=== PATIENT | female | born 1945 | race Caucasian/White ===

== ENCOUNTER → 2016-08-04 17:21 | Outpatient (CLI) | payer MEDICARE, OTHER | END | disposition home or self-care (01) | LOC: D.MAMMO 16:00 | DX: Z12.31 Encounter for screening mammogram for malignant neoplasm of breast (principal) ==

== ENCOUNTER 2016-08-20 04:42 | Emergency (ER) | payer MEDICARE, OTHER | END 2016-08-20 06:26 | disposition home or self-care (01) | LOC: D.ER 04:42 | DX: T78.40XA Allergy, unspecified, initial encounter (principal); X58.XXXA Exposure to other specified factors, initial encounter; J45.909 Unspecified asthma, uncomplicated; R73.03 Prediabetes ==

== ENCOUNTER 2016-11-12 16:24 | Emergency (ER) | payer MEDICARE, OTHER | END 2016-11-12 19:53 | disposition home or self-care (01) | LOC: D.ER 16:24 | DX: M54.2 Cervicalgia (principal); M54.6 Pain in thoracic spine; M25.511 Pain in right shoulder; M25.531 Pain in right wrist; V49.9XXA Car occupant (driver) (passenger) injured in unspecified traffic accident, initial encounter; Y93.89 Activity, other specified; Y92.89 Other specified places as the place of occurrence of the external cause; J45.909 Unspecified asthma, uncomplicated; R73.03 Prediabetes ==

== ENCOUNTER 2016-12-13 16:34 | Emergency (ER) | payer MEDICARE, OTHER ==
[2016-12-13 17:43] LABS: BASOPHILS 0.4 % (0-2); EOSINOPHILS 4.7 % (0-7); HEMATOCRIT 42.2 % (36.0-48.0); HEMOGLOBIN 13.3 g/dL (12-16); IMMATURE GRANULOCYTES 0.1 % (0-5); LYMPHOCYTES 29.1 % (15-50); MCH 29.6 pg (26.0-34.0); MCHC 31.5 g/dL (31.0-37.0); MEAN PLATELET VOLUME 9.5 fL (7.4-10.4); MONOCYTES 8.6 % (2-11); NEUTROPHILS 57.1 % (40-80); PLATELET COUNT 187 10x3/uL (130-400); RBC 4.49 10x6/uL (4.00-5.40); RDW 13.1 % (11.5-14.5); WBC 6.8 10x3/uL (4.8-10.8)
[2016-12-13 18:32] LABS: ALBUMIN 3.6 g/dL (3.4-5.0); ALKALINE PHOSPHATASE 60 U/L (46-116); ALT (SGPT) 29 U/L (10-68); BILIRUBIN - TOTAL 0.49 mg/dL (0.2-1.3); CALC OSMOLALITY 281 mosm/kg (275-300); CARBON DIOXIDE 28.5 mmol/L (21.0-32.0); CHLORIDE - SERUM 104 mmol/L (98-107); CREATININE - SERUM 0.8 mg/dL (0.6-1.3); GLUCOSE 94 mg/dL (74-106); POTASSIUM - SERUM 4.3 mmol/L (3.5-5.1); PROTEIN - SERUM 7.2 g/dL (6.4-8.2); SODIUM 141 mmol/L (136-145); UREA NITROGEN 16 mg/dL (7-18); eGFR NON AFRICAN AMERICAN 75 mL/min (90-120)
== END 2016-12-13 20:00 | disposition left against medical advice (07) ==
LOC: D.ER 16:34
PROVIDERS: Emergency Medicine
DX: R10.9 Unspecified abdominal pain (principal)

== ENCOUNTER 2017-04-09 12:43 | Emergency (ER) | payer MEDICARE, OTHER ==
[2017-04-09 13:33] LABS: BASOPHILS 0.3 % (0-2); HEMATOCRIT 40.4 % (36.0-48.0); IMMATURE GRANULOCYTES 0.2 % (0-5); LYMPHOCYTES 25.4 % (15-50); MCH 29.8 pg (26.0-34.0); MCHC 32.2 g/dL (31.0-37.0); MCV 92.7 fL (80.0-100.0); MEAN PLATELET VOLUME 9.9 fL (7.4-10.4); MONOCYTES 8.5 % (2-11); NEUTROPHILS 62.6 % (40-80); PLATELET COUNT 181 10x3/uL (130-400); RBC 4.36 10x6/uL (4.00-5.40); RDW 12.6 % (11.5-14.5); WBC 6.6 10x3/uL (4.8-10.8)
== END 2017-04-09 15:45 | disposition home or self-care (01) ==
LOC: D.ER 12:43
PROVIDERS: Emergency Medicine
DX: B34.9 Viral infection, unspecified (principal)

== ENCOUNTER → 2017-06-01 19:04 | Outpatient (CLI) | payer MEDICARE, OTHER ==
[2017-06-06 15:20] LABS: EHRLICHIA CHAFF IGG Negative (Neg:<1:64); EHRLICHIA CHAFF IGM Negative (Neg:<1:20); HGE IGG TITER Negative (Neg:<1:64); HGE IGM TITER Negative (Neg:<1:20)
[2017-06-06 16:11] LABS: RMSF IGM 0.15 index (0.00-0.89)
[2017-06-07 13:16] LABS: F. TULARENSIS - IGG Negative (()); F. TULARENSIS - IGM Negative (())
== END | disposition home or self-care (01) ==
LOC: D.LABREF 19:04
PROVIDERS: Student in an Organized Health Care Education/Training Program
DX: R53.83 Other fatigue (principal)

== ENCOUNTER 2017-10-28 22:26 | Observation (INO) | payer MEDICARE, OTHER ==
[~2017-10-28] VITALS: Ht 157.5 cm; Wt 78.8 kg
--- NOTE | ~2017-10-28 | HP ---
PATIENT: RENAE ESCUDERO MEDICAL RECORD: [id number] ACCOUNT: [id number] LOCATION:[address] : [birth year] ADMISSION DATE: 10/28/17 HISTORY AND PHYSICAL EXAMINATION ADMITTING DIAGNOSES: 1. Chest pain. 2. Hyperlipidemia. 3. COPD. 4. GERD. 5. Noninsulin-dependent diabetes. HISTORY OF PRESENT ILLNESS: Ms. Escudero presents with atypical chest pain. It is a sharp pain that lasts only 1 second. She has multiple episodes of these and then they go away. She has had recurrences of these over the past week. She just lost her last week in the hospital and she has been under a lot of stress secondary to that. Her EKG is normal. Troponin is normal. PHYSICAL EXAMINATION: GENERAL APPEARANCE: Well-nourished, well-developed, appears stated age. Level of distress, comfortable. PSYCHIATRIC: Mental status, alert, normal affect. Orientation, oriented to time, place and person. EYES: Lids and conjunctiva, noninjected. No discharge, no pallor. ENT: Lips, teeth, gums, normal dentition. Oropharynx, no cyanosis, no pallor. NECK: Carotid arteries, bilateral normal upstroke, no bruits, no thrills. JUGULAR VEINS: No jugular venous pressure or distention. CERVICAL LYMPH NODES: Nontender, nonenlarged. THYROID: Not enlarged. Nontender. No nodules. LUNGS: Respiratory effort, unlabored. CHEST: Normal curvature. No thoracic deformity. No chest wall tenderness. Percussion, resonant. Auscultation, clear. No wheezes, no rales, no rhonchi. CARDIOVASCULAR: Precordial exam, nondisplaced. No heaves or pericardial thrills. Rate and rhythm, regular. Heart sounds, normal S1, normal S2. No S3, no gallop, no rub. Systolic murmur, not heard. Diastolic murmur, not heard. EXTREMITIES: No cyanosis, no edema. Peripheral pulses, full and equal in all extremities, except as noted. No bruits appreciated. ABDOMEN: Soft, nondistended. Normal aorta. No bruit. Nontender. No masses. Liver, nontender, no hepatomegaly. Spleen, nontender, no splenomegaly. MUSCULOSKELETAL: No joint tenderness. No joint swelling. No erythema. NEUROLOGICAL: Normal gait, normal strength, normal tone. SKIN: Warm and dry. REVIEW OF SYSTEMS: The patient reports easy bruising but reports no swollen glands. The patient reports no fever, no night sweats, no significant weight gain, no significant weight loss. No significant exercise tolerance. The patient reports no dry eyes, no irritation, no vision change. Patient reports no difficulty hearing and no ear pain. Patient reports no frequent nose bleeds or nose and sinus problems. Patient reports on arm pain on exertion. No shortness of breath while lying down. No history of heart murmur. Patient reports no cough, no wheezing or coughing up blood. Patient reports no abdominal pain, no vomiting. Normal appetite. No diarrhea and not vomiting blood. No nausea and no constipation. Patient reports no incontinence. No difficulty urinating. No hematuria. No increased frequency. Patient reports no muscle aches. No weakness, no arthralgias, no back pain. No swelling of the HISTORY AND PHYSICAL [id number] FELICIANO,RENAE GARVINNE extremities. Patient reports no abnormal mole, no jaundice, no rashes. Reports no loss of consciousness. No weakness and no numbness. No seizures, dizziness, or headaches. The patient reports no depression, no sleep disturbance, feeling safe in a relationship and no alcohol abuse. Patient reports on fatigue. Reports no runny nose or sinus pressure. No itching, no hives, and no frequent sneezing. OVERALL IMPRESSION: Chest pain. This is not at all cardiac in nature. We will set her up for an outpatient stress test. TRANSINT:[id number] Voice Confirmation ID: [id number] DOCUMENT ID: [id number] RADAMES PABLO MD at 1629 CC: [id number] DICTATION DATE: 10/29/17 08 LOCK TECHNICIAN: 10/29/17 1142 DIS IN 10/29/17 [facility] [address] [place] [address]
--- NOTE | ~2017-10-28 | DS ---
PATIENT:RENAE ESCUDERO :[birth year] MEDICAL RECORD: [id number] DISCHARGE SUMMARY ADMISSION DATE: 10/28/17 DISCHARGE DATE: 10/29/17 DISCHARGE DIAGNOSES: 1. Noncardiac chest pain. 2. Hyperlipidemia. 3. Chronic obstructive pulmonary disease. 4. Diabetes. HOSPITAL COURSE: Ms. Escudero presents with atypical chest pain, rule out for myocardial infarction. No EKG changes. Discharged home to follow up with [facility] for a stress test in the future. TRANSINT:[id number] Voice Confirmation ID: [id number] DOCUMENT ID: [id number] RADAMES PABLO MD at 1630 CC: [id number] DICTATION DATE: 10/29/17 08 PEGGER DOBBY LOOMS: 10/29/17 1656 DIS IN 10/29/17 [facility] [address] [place] [address]
[2017-10-28 23:01] LABS: BASOPHILS 0.5 % (0-2); HEMATOCRIT 40.6 % (36.0-48.0); HEMOGLOBIN 13.1 g/dL (12-16); IMMATURE GRANULOCYTES 0.2 % (0-5); LYMPHOCYTES 30.1 % (15-50); MCHC 32.3 g/dL (31.0-37.0); MCV 92.9 fL (80.0-100.0); MEAN PLATELET VOLUME 10.2 fL (7.4-10.4); MONOCYTES 6.6 % (2-11); NEUTROPHILS 59.6 % (40-80); PLATELET COUNT 211 10x3/uL (130-400); RBC 4.37 10x6/uL (4.00-5.40); WBC 8.1 10x3/uL (4.8-10.8)
[2017-10-28 23:23] LABS: ALBUMIN 3.6 g/dL (3.4-5.0); ALKALINE PHOSPHATASE 73 U/L (46-116); ALT (SGPT) 29 U/L (10-68); CALC OSMOLALITY 285 mosm/kg (275-300); CALCIUM 8.6 mg/dL (8.5-10.1); CARBON DIOXIDE 30.1 mmol/L (21.0-32.0); CHLORIDE - SERUM 105 mmol/L (98-107); CREATININE - SERUM 0.9 mg/dL (0.6-1.3); POTASSIUM - SERUM 3.7 mmol/L (3.5-5.1); PROTEIN - SERUM 7.6 g/dL (6.4-8.2); SODIUM 140 mmol/L (136-145); UREA NITROGEN 24 mg/dL (7-18); eGFR NON AFRICAN AMERICAN 65 mL/min (90-120)
[2017-10-28 23:25] LABS: GLUCOSE 154 mg/dL (74-106)
[2017-10-28 23:33] LABS: CHOL - HDL RATIO 2.6 ratio (2.3-4.1); CHOLESTEROL, TOTAL 181 mg/dL (0-200); CKMB 1.8 U/L (0.0-3.6); CREATINE KINASE 126 UL (21-215); HDL CHOLESTEROL 71 mg/dL (32-96); LDL CHOLESTEROL 90 mg/dL (0-100); LDL-HDL RATIO 1.3 ratio (1.5-3.5); TRIGLYCERIDE 103 mg/dL (30-200); TROPONIN-I < 0.017 ng/mL (0.000-0.060)
[2017-10-29] MEDS ORDERED: XALATAN 0.0052.5 ML EACH EYE (00:51)
[2017-10-29] MEDS ORDERED: MOBIC7.5 MG PO (00:54)
[2017-10-29] MEDS ORDERED: ZOLOFT50 MG PO (00:54)
[2017-10-29] MEDS ORDERED: LIPITOR40 MG PO (00:55)
[2017-10-29] MEDS ORDERED: MIRAPEX0.25 MG PO (00:56)
[2017-10-29] MEDS ORDERED: BUPROPION XL150 MG PO (00:57)
[2017-10-29] MEDS ORDERED: LEXAPRO20 MG PO (00:57)
[2017-10-29] MEDS ORDERED: GLUCOPHAGE500 MG PO (00:58)
[2017-10-29] MEDS ORDERED: PROTONIX40 MG PO (00:59)
[2017-10-29] MEDS ORDERED: PROAIR HFA8.5 GM INH (01:01)
[2017-10-29 01:02] VITALS: BP 131/60
[2017-10-29 01:11] VITALS: BP 131/60; Ht 157.5 cm; Wt 78.8 kg
[2017-10-29 05:31] VITALS: BP 101/55
[2017-10-29 05:57] LABS: CKMB 1.2 U/L (0.0-3.6); CREATINE KINASE 92 UL (21-215); TROPONIN-I < 0.017 ng/mL (0.000-0.060)
[2017-10-29 08:36] VITALS: BP 124/64
[2017-10-29 08:56] LABS: CKMB 1.5 U/L (0.0-3.6); CREATINE KINASE 102 UL (21-215); TROPONIN-I < 0.017 ng/mL (0.000-0.060)
== END 2017-10-29 10:01 | disposition home or self-care (01) ==
LOC: D.ER 22:26 → D.M2 23:50 → OBSVTIME 23:50 → D.M2 10-29 10:01
PROVIDERS: Emergency Medicine
DX: R07.89 Other chest pain (principal); E78.5 Hyperlipidemia, unspecified; J44.9 Chronic obstructive pulmonary disease, unspecified; K21.9 Gastro-esophageal reflux disease without esophagitis; E11.9 Type 2 diabetes mellitus without complications

== ENCOUNTER → 2017-11-16 08:24 | Outpatient (CLI) | payer MEDICARE, OTHER ==
[2017-10-29 01:11] VITALS: BMI 31.8
[~2017-11-16 08:24] MED LIST: BUPROPION XL150 MG PO; GLUCOPHAGE500 MG PO; LEXAPRO20 MG PO; LIPITOR40 MG PO; MIRAPEX0.25 MG PO; MOBIC7.5 MG PO; PROAIR HFA8.5 GM INH; PROTONIX40 MG PO; XALATAN 0.0052.5 ML EACH EYE; ZOLOFT50 MG PO
== END | disposition home or self-care (01) ==
LOC: D.MAMMO 08:24
DX: Z12.31 Encounter for screening mammogram for malignant neoplasm of breast (principal)

== ENCOUNTER → 2017-12-22 09:33 | Outpatient (CLI) | payer MEDICARE, OTHER ==
[2017-10-29 01:11] VITALS: BMI 31.8
[~2017-12-22 09:33] MED LIST changes: +BACTRIM DS TABL1 TAB PO; +PHENAZOPYRIDIN100 MG PO
[2017-12-22 11:16] LABS: BASOPHILS 0.7 % (0-2); EOSINOPHILS 4.1 % (0-7); HEMATOCRIT 40.5 % (36.0-48.0); IMMATURE GRANULOCYTES 0.1 % (0-5); MCHC 32.1 g/dL (31.0-37.0); MCV 93.3 fL (80.0-100.0); MEAN PLATELET VOLUME 9.6 fL (7.4-10.4); MONOCYTES 7.4 % (2-11); NEUTROPHILS 50.7 % (40-80); PLATELET COUNT 209 10x3/uL (130-400); RBC 4.34 10x6/uL (4.00-5.40); RDW 12.8 % (11.5-14.5); WBC 7.3 10x3/uL (4.8-10.8)
[2017-12-23 08:19] LABS: IMMUNOGLOBULIN A 287 mg/dL (64-422)
[2017-12-24 03:10] LABS: IGG SUBCLASS 1 567 mg/dL (248-810); IGG SUBCLASS 2 313 mg/dL (130-555); IGG SUBCLASS 3 42 mg/dL (15-102); IGG SUBCLASS 4 94 mg/dL (2-96); IMMUNOGLOBULIN G 964 mg/dL (700-1600)
[2017-12-25 22:05] LABS: IMMUNOGLOBULIN E 45 IU/mL (0-100)
== END | disposition home or self-care (01) ==
LOC: D.RT 09:33
PROVIDERS: Internal Medicine Pulmonary Disease
DX: J32.9 Chronic sinusitis, unspecified (principal); Z87.01 Personal history of pneumonia (recurrent); J45.909 Unspecified asthma, uncomplicated; J42 Unspecified chronic bronchitis

== ENCOUNTER 2018-01-20 23:25 | Emergency (ER) | payer MEDICARE, OTHER ==
[~2018-01-20] VITALS: Ht 162.6 cm; Wt 75.0 kg
[~2018-01-20 23:25] MED LIST changes: -BACTRIM DS TABL1 TAB PO; -PHENAZOPYRIDIN100 MG PO
[2018-01-20 23:28] VITALS: Ht 162.6 cm; Wt 75.0 kg
[2018-01-21 00:35] LABS: APPEARANCE CLOUDY (CLEAR); BACTERIA MODERATE /hpf (NONE SEEN); BILIRUBIN NEGATIVE (NEGATIVE); COLOR YELLOW (YELLOW); EPITHELIAL CELLS NSEEN /hpf (0-5); GLUCOSE NEGATIVE (NEGATIVE); KETONE NEGATIVE (NEGATIVE); NITRITE NEGATIVE (NEGATIVE); PROTEIN TRACE mg/dL (NEGATIVE); UROBILINOGEN NORMAL (NORMAL); WHITE CELLS - URINE >50 /hpf (0-5)
[2018-01-21 00:52] LABS: BASOPHILS 0.2 % (0-2); EOSINOPHILS 2.1 % (0-7); HEMATOCRIT 38.9 % (36.0-48.0); HEMOGLOBIN 12.6 g/dL (12-16); IMMATURE GRANULOCYTES 0.2 % (0-5); LYMPHOCYTES 16.9 % (15-50); MCH 29.6 pg (26.0-34.0); MCHC 32.4 g/dL (31.0-37.0); MCV 91.3 fL (80.0-100.0); MEAN PLATELET VOLUME 9.8 fL (7.4-10.4); MONOCYTES 9.5 % (2-11); NEUTROPHILS 71.1 % (40-80); PLATELET COUNT 201 10x3/uL (130-400); RBC 4.26 10x6/uL (4.00-5.40); RDW 13.3 % (11.5-14.5); WBC 11.4 10x3/uL (4.8-10.8)
[2018-01-21 01:12] LABS: ALBUMIN 3.5 g/dL (3.4-5.0); ALKALINE PHOSPHATASE 58 U/L (46-116); ALT (SGPT) 26 U/L (10-68); BILIRUBIN - TOTAL 0.55 mg/dL (0.2-1.3); CALC OSMOLALITY 278 mosm/kg (275-300); CALCIUM 8.9 mg/dL (8.5-10.1); CARBON DIOXIDE 30.6 mmol/L (21.0-32.0); CHLORIDE - SERUM 100 mmol/L (98-107); CREATININE - SERUM 0.8 mg/dL (0.6-1.3); GLUCOSE 109 mg/dL (74-106); POTASSIUM - SERUM 3.8 mmol/L (3.5-5.1); PROTEIN - SERUM 7.1 g/dL (6.4-8.2); SODIUM 138 mmol/L (136-145); UREA NITROGEN 18 mg/dL (7-18); eGFR NON AFRICAN AMERICAN 75 mL/min (90-120)
[2018-01-21] MEDS ORDERED: PHENAZOPYRIDIN100 MG PO (01:47)
[2018-01-21] MEDS ORDERED: BACTRIM DS TABL1 TAB PO (01:47)
[2018-01-21 02:05] VITALS: BP 122/78
== END 2018-01-21 02:05 | disposition home or self-care (01) ==
LOC: D.ER 23:25
PROVIDERS: Family Medicine
DX: N39.0 Urinary tract infection, site not specified (principal); E11.9 Type 2 diabetes mellitus without complications

== ENCOUNTER 2018-02-23 16:49 | Emergency (ER) | payer MEDICARE, OTHER ==
[~2018-02-23] VITALS: Ht 162.6 cm; Wt 77.3 kg
[~2018-02-23 16:49] MED LIST changes: +BACTRIM DS TABL1 TAB PO; +PHENAZOPYRIDIN100 MG PO
[2018-02-23 17:31] VITALS: Ht 162.6 cm; Wt 77.3 kg
[2018-02-23 18:19] LABS: BASOPHILS 0.3 % (0-2); HEMATOCRIT 39.1 % (36.0-48.0); HEMOGLOBIN 12.6 g/dL (12-16); IMMATURE GRANULOCYTES 0.4 % (0-5); LYMPHOCYTES 22.3 % (15-50); MCH 29.3 pg (26.0-34.0); MCHC 32.2 g/dL (31.0-37.0); MCV 90.9 fL (80.0-100.0); MEAN PLATELET VOLUME 9.9 fL (7.4-10.4); MONOCYTES 7.8 % (2-11); NEUTROPHILS 67.2 % (40-80); PLATELET COUNT 199 10x3/uL (130-400); RDW 13.6 % (11.5-14.5); WBC 9.3 10x3/uL (4.8-10.8)
[2018-02-23 18:31] LABS: APTT 24.1 SECONDS (22.8-39.4); PROTIME 12.8 SECONDS (11.6-15.0)
[2018-02-23 18:32] LABS: D-DIMER-QUANTITATIVE 0.84 ug/mLFEU (0.20-0.54)
[2018-02-23 18:38] LABS: ALBUMIN 3.4 g/dL (3.4-5.0); ANION GAP 8.8 mmol/L (8-16); BILIRUBIN - TOTAL 0.4 mg/dL (0.2-1.3); CALCIUM 8.7 mg/dL (8.5-10.1); CARBON DIOXIDE 30.6 mmol/L (21.0-32.0); CREATININE - SERUM 1.1 mg/dL (0.6-1.3); POTASSIUM - SERUM 3.4 mmol/L (3.5-5.1); PROTEIN - SERUM 7.2 g/dL (6.4-8.2)
[2018-02-23] MEDS ORDERED: TORADOL10 MG PO (21:24)
[2018-02-23 21:43] VITALS: BP 149/79
== END 2018-02-23 21:44 | disposition home or self-care (01) ==
LOC: D.ER 16:49
PROVIDERS: Family Medicine
DX: M25.561 Pain in right knee (principal); R22.41 Localized swelling, mass and lump, right lower limb; E11.9 Type 2 diabetes mellitus without complications; K21.9 Gastro-esophageal reflux disease without esophagitis

== ENCOUNTER 2018-08-07 03:12 | Inpatient (IN) | payer MEDICARE, OTHER ==
[2018-08-07] VITALS (8 sets, daily range): BP systolic 111–154; BP diastolic 44–79; Ht 162.6 cm; Wt 76.8 kg
[~2018-08-07] VITALS: Ht 162.6 cm; Wt 76.8 kg
[~2018-08-07 03:12] MED LIST changes: +TORADOL10 MG PO
[2018-08-07] MEDS ORDERED: PROTONIX40 MG PO (03:17)
[2018-08-07] MEDS ORDERED: ZYBAN150 MG (03:18)
[2018-08-07] MEDS ORDERED: POTASSIUM CHLO10 ME1 PO (03:18)
[2018-08-07] MEDS ORDERED: BREO ELLIPTA 11 EACH INH (03:18)
[2018-08-07 04:49] LABS: BASOPHILS 0.5 % (0-2); EOSINOPHILS 3.2 % (0-7); HEMATOCRIT 39.8 % (36.0-48.0); HEMOGLOBIN 12.8 g/dL (12-16); IMMATURE GRANULOCYTES 0.1 % (0-5); LYMPHOCYTES 19.7 % (15-50); MCH 29.2 pg (26.0-34.0); MCHC 32.2 g/dL (31.0-37.0); MCV 90.7 fL (80.0-100.0); MEAN PLATELET VOLUME 10.3 fL (7.4-10.4); MONOCYTES 7.1 % (2-11); NEUTROPHILS 69.4 % (40-80); PLATELET COUNT 191 10x3/uL (130-400); RBC 4.39 10x6/uL (4.00-5.40); RDW 13.4 % (11.5-14.5); WBC 7.9 10x3/uL (4.8-10.8)
[2018-08-07 04:53] LABS: INR 1.06 (0.85-1.17); PROTIME 13.3 SECONDS (11.6-15.0)
[2018-08-07 05:01] LABS: ALBUMIN 3.3 g/dL (3.4-5.0); ANION GAP 11.9 mmol/L (8-16); BILIRUBIN - TOTAL 0.25 mg/dL (0.2-1.3); CALCIUM 8.8 mg/dL (8.5-10.1); CARBON DIOXIDE 29.7 mmol/L (21.0-32.0); CREATININE - SERUM 0.8 mg/dL (0.6-1.3); MAGNESIUM - SERUM 1.7 mg/dL (1.8-2.4); POTASSIUM - SERUM 3.6 mmol/L (3.5-5.1); PROTEIN - SERUM 6.7 g/dL (6.4-8.2)
--- NOTE | 2018-08-07 06:52 | NUR ---
IV FLUIDS STARTED. MAG RIDER INFUSING. PT USED BEDPAN AND VOIDED 200 ML YELLOW URINE. GAVE LEMON SWABS FOR ORAL DRYNESS.
--- NOTE | 2018-08-07 08:33 | NUR ---
AWAKE AND ALERT. ORIENTED X3. NO C/O AT THIS TIME. LUNGS ARE CLEAR BILATERALLY, NO COUGH NOTED. SKIN IS INTACT WITHOUT REDNESS. IV TO LEFT AC IS PATENT WITHOUT REDNESS AT INSERTION SITE. BOOT IN PLACE TO LEFT LE. MOVES DIGITS FREELY. DENIES NEEDS.
--- NOTE | 2018-08-07 10:03 | NUR ---
CONSENTS COMPLETED. HIBICLENS BATH INITIATED. NPO FOR SURGERY.
--- NOTE | 2018-08-07 13:50 | NUR ---
REQUESTED AND GIVNE 1MG MORPHINE SLOW IVP FOR C/O LEFT FOOT PAIN LEVEL 10. WILL MONITOR.
--- NOTE | 2018-08-07 13:57 | MORECARE ---
CASE MANAGEMENT DISCHARGE SUMMARY PATIENT: RENAE WIGGINS UNIT: [id number] ADM DATE: 08/07/18 AGE: 73 : 46 SEX: F ROOM/BED: D.2203 AUTHOR: RAJANI HUNTER PHYSICIAN: REFERRING PHYSICIAN: RICCARDO DURHAM MD DATE OF SERVICE: 08/07/18 Discharge Plan Patient Name: RENAE WIGGINS Facility: [facility]:[place] : 1945 Planned Disposition: Home Anticipated Discharge Date: Discharge Date: Expected LOS: Initial Reviewer: [email or web address] Initial Review Date: 08/07/2018 Generated: 08/07/18 2:57 pm Patient Name: RENAE WIGGINS Page 56407 at 1357 All edits/amendments must be made on the electronic document DICTATION DATE: 08/07/18 1357 SOFTWARE SALES CONSULTANT: CHERRI 08/07/18 1357 RPT#: [id number] DC DATE: STATUS: ADM IN [facility] [address] [place] [address] END OF REPORT
--- NOTE | 2018-08-07 14:05 | MORECARE ---
CASE MANAGEMENT DISCHARGE SUMMARY PATIENT: RENAE WIGGINS UNIT: [id number] ADM DATE: 08/07/18 AGE: 73 : 46 SEX: F ROOM/BED: D.2203 AUTHOR: DALEDOC PHYSICIAN: REFERRING PHYSICIAN: RICCARDO DURHAM MD DATE OF SERVICE: 08/07/18 Discharge Plan Patient Name: RENAE WIGGISN Facility: [facility]:[place] : 1945 Planned Disposition: Home Anticipated Discharge Date: Discharge Date: Expected LOS: Initial Reviewer: [email or web address] Initial Review Date: 08/07/2018 Generated: 08/07/18 3:05 pm Comments DCP- Discharge Planning Updated by [email or web address]: Ekaterina Trujillo on 08/07/18 1:[address] Patient Name: RENAE WIGGINS Admission Status: ER Accout number: [id number] Admission Date: 08-07-2018 : 1945 Admission Diagnosis: Attending: RICCARDO DURHAM Current LOS: 1 Anticipated DC Date: Planned Disposition: Home Primary Insurance: MEDICARE A & B Discharge Planning Comments: CM met with patient to assess discharge planning needs. Patient stated that she lives independently at home with her 18 year old niece. She does not use any home health nor does she have any DME. She is going to surgery today. She will need a walker at discharge. She stated that either her daughter or her son will be the one to drive her home at DC. She has 3 steps in her home. CM will continue to follow and assist with DC planning needs. Technologist Infectious Disease: Ekaterina Trujillo DCPIA - Discharge Planning Initial Assessment Updated by [email or web address]: Ekaterina Trujillo on 08/07/18 1:57 pm * Is the patient Alert and Oriented? Yes * How many steps to enter\exit or inside your home? * PCP ANA * Pharmacy [facility] * Preadmission Environment Home with Family * ADLs Independent * Equipment None * List name and contact numbers for known caregivers / representatives who currently or will assist patient after discharge: TARAH ESQUIVEL (DAUGHTER) [phone] * Verbal permission to speak to the caregivers and representatives has been obtained from the patient. N/A * Community resources currently utilized None * Additional services required to return to the preadmission environment? Yes * Can the patient safely return to the preadmission environment? Yes * Has this patient been hospitalized within the prior 30 days at any hospital? No Last DP export: 08/07/18 12:57 p Patient Name: RENAE WIGGINS Page [id number] at 1405 All edits/amendments must be made on the electronic document DICTATION DATE: 08/07/181404 WRAPPER STITCHER: CHERRI 08/07/181404 RPT#: [id number] DC DATE: STATUS: ADM IN [facility] [address] [place] [address] END OF REPORT
--- NOTE | 2018-08-07 14:45 | NUR ---
OFF UNIT VIA BED TO SURGERY.
--- NOTE | 2018-08-07 17:24 | NUR ---
RETURNED FROM SURGERY. A/O X3. DENIES NEEDS.
--- NOTE | 2018-08-07 19:22 | NUR ---
VSS. ATE ABOUT HALF OF SUPPER. DENIES NEEDS. NO CHANGES NOTED.
--- NOTE | 2018-08-07 19:45 | NUR ---
PT SITTING UP IN BED, NO SIGNS OF DISTRESS. ALERT AND ORIENTED. FAMILY AT BEDSIDE. O2 2L/NC. IV LEFT FA INFUSING 1/2NS @ 50. INITIATED DILAUDID INSURANCE SALESMAN. EDUCATED PT ON USE. PT VERBALIZED UNDERSTANDING. LEFT ANKLE WRAPPED IN JAYRO WRAP, DRESSING SLIGHTLY WET. DAY NURSE STATES PT CAME BACK FROM SX W/ IT WET. ANKLE PROPPED ON TWO PILLOWS. SCD TO RIGHT LEG. ASSISTED PT ON AND OFF BEDPAN TO VOID. NO OTHER NEEDS OR COMPLAINTS AT THIS TIME. CL IN REACH, WILL CONTINUE TO MONITOR
[2018-08-08 04:00] VITALS: BP 102/48
--- NOTE | 2018-08-08 08:10 | NUR ---
AWAKE AND ALERT. ORIENTED X3. NO C/O AT THIS TIME. LUNGS ARE CLEAR BILATERALLY, NO COUGH NOTED. SKIN IS INTACT WITHOUT REDNESS EXCEPT INCISION TO LEFT ANKLE WHICH HAS A DRY INTACT DRESSING IN PLACE. IV TO LEFT AC IS PATENT WITHOUT REDNESS AT INSERTION SITE. ASSISTED WITH BED VANCE PER STAFF. DENIES NEEDS.
[2018-08-08 09:15] VITALS: BP 127/59
[2018-08-08] MEDS ORDERED: DORZOLAMIDE-TIMOLOL EACH EYE (09:27)
--- NOTE | 2018-08-08 10:00 | NUR ---
ATE MOST OF BREAKFAST. NO NEEDS. NOTED. WORKED WITH PT AND WAS VERY UNSTABLE. WILL MONITOR.
--- NOTE | 2018-08-08 13:00 | NUR ---
ATE A FEW BITES OF LUNCH. FAMILY BROUGHT IN A HAMBURGER AND PATIENT ATE ALMOST THE WHOLE THING. DENIES NEEDS.
[2018-08-08 13:37] VITALS: BP 102/54
--- NOTE | 2018-08-08 15:07 | NUR ---
Rehab Note- Acute Inpatient Rehab prescreen order received. The patient is post op day #1. Will follow at this time for possible inpatient acute rehab stay prior to discharging home. Thank you for this referral! Angelita Hernández RN Clinical Liaison, [facility]
--- NOTE | 2018-08-08 17:15 | NUR ---
SITTING UP IN BED EATING SUPPER. REQUESTED AND GIVEN ONE HYDROCODONE PO FOR C/O NECK AND HEADACHE. WILL MONITOR.
--- NOTE | 2018-08-08 19:45 | NUR ---
PT SITTING UP IN BED, NO SIGNS OF DISTRESS. ALERT AND ORIENTED. PT STATES NO PAIN AT THIS TIME. LEFT ANKLE WRAPPED IN JAYRO WRAP CDI, PROPPED ON PILLOWS. SCD TO RIGHT LEG. ASSISTED PT ON AND OFF BEDPAN TO VOID. IV LEFT AC SL, DRESSING CDI. DENIES NEEDS AT THIS TIME. CL IN REACH, WILL CONTINUE TO MONITOR
[2018-08-08 20:00] VITALS: BP 109/49
--- NOTE | 2018-08-09 01:00 | NUR ---
PT STATES PAIN 4/10 AND INCREASING. GAVE NORCO ORDERED. WILL CONTINUE TO MONITOR
[2018-08-09 04:00] VITALS: BP 113/55
--- NOTE | 2018-08-09 07:57 | NUR ---
PT RESTING IN BED. NO SIGNS OF DISTRESS. IV TO LEFT AC PATENT NO REDNESS OR TENDERNESS. INCISION TO LEFT ANKLE DRESSING CLEAN AND INTACT. NON WT BARING. DENIES ANY PAIN OR OTHER NEED AT THIS TIME. CALL LIGHT IN REACH. BED LOW POSITION. NO FAMILY AT BEDSIDE AT THIS TIME.
[2018-08-09 10:25] VITALS: BP 129/50
--- NOTE | 2018-08-09 12:37 | MORECARE ---
CASE MANAGEMENT DISCHARGE SUMMARY PATIENT: RENAE WIGGINS UNIT: [id number] ADM DATE: 08/07/18 AGE: 73 : 46 SEX: F ROOM/BED: D.2203 AUTHOR: DALE,DOC PHYSICIAN: REFERRING PHYSICIAN: RICCARDO DURHAM MD DATE OF SERVICE: 08/09/18 Discharge Plan Patient Name: RENAE WIGGINS Facility: [facility]:[place] : 1945 Planned Disposition: Home Anticipated Discharge Date: Discharge Date: Expected LOS: Initial Reviewer: [email or web address] Initial Review Date: 08/07/2018 Generated: 08/09/18 1:37 pm Comments DCP- Discharge Planning Updated by [email or web address]: Ekaterina Trujillo on 08/09/18 11:[address] Patient has been accepted to inpatient rehab and will be discharging there today at [facility] inpatient rehab. Patient is in agreement DCP- Discharge Planning Updated by [email or web address]: Ekaterina Trujillo on 08/07/18 1:[address] Patient Name: RENAE WIGGINS Admission Status: ER Accout number: [id number] Admission Date: 08-07-2018 : 1945 Admission Diagnosis: Attending: RICCARDO DURHAM Current LOS: 1 Anticipated DC Date: Planned Disposition: Home Primary Insurance: MEDICARE A & B Discharge Planning Comments: CM met with patient to assess discharge planning needs. Patient stated that she lives independently at home with her 18 year old niece. She does not use any home health nor does she have any DME. She is going to surgery today. She will need a walker at discharge. She stated that either her daughter or her son will be the one to drive her home at DC. She has 3 steps in her home. CM will continue to follow and assist with DC planning needs. Thread Laster: Ekaterina Trujillo DCPIA - Discharge Planning Initial Assessment Updated by [email or web address]: Ekaterina Trujillo on 08/07/18 1:57 pm * Is the patient Alert and Oriented? Yes * How many steps to enter\exit or inside your home? * PCP ANA * [facility] * Preadmission Environment Home with Family * ADLs Independent * Equipment None * List name and contact numbers for known caregivers / representatives who currently or will assist patient after discharge: TARAH ESQUIVEL (DAUGHTER) [phone] * Verbal permission to speak to the caregivers and representatives has been obtained from the patient. N/A * Community resources currently utilized None * Additional services required to return to the preadmission environment? Yes * Can the patient safely return to the preadmission environment? Yes * Has this patient been hospitalized within the prior 30 days at any hospital? No Last DP export: 08/07/18 1:05 p Patient Name: RENAE WIGGINS Page 84654 at 1237 All edits/amendments must be made on the electronic document DICTATION DATE: 08/09/181236 AIRBORNE MISSIONS SYSTEMS: CHERRI 08/09/181236 RPT#: [id number] DC DATE: STATUS: ADM IN [facility] [address] [place] [address] END OF REPORT
[2018-08-09] MEDS ORDERED: ELIQUIS2.5 MG PO (12:49)
[2018-08-09] MEDS ORDERED: NORCO-10 PO (12:49)
[2018-08-09 16:40] VITALS: BP 115/51
--- NOTE | 2018-08-09 17:08 | NUR ---
DISCHARGE INSTRUCTIONS GIVEN. SEEMS TO UNDERSTAND. DISCHARGED TO REHAB. DENIES ANY NEED BEFORE LEAVING. LEFT WITH HOSPITAL STAFF. IV OUT TIP INTACT.
--- NOTE | 2018-08-10 14:26 | OP ---
PATIENT NAME: RENAE WIGGINS MEDICAL RECORD: [id number] :[birth year] LOCATION:[address] ADMISSION DATE:08/07/18 SURGEON: RICCARDO DURHAM MD DATE OF OPERATION: 08/07/2018 PREOPERATIVE DIAGNOSIS: Left lateral malleolus fracture with medial clear space widening. POSTOPERATIVE DIAGNOSIS: Left lateral malleolus fracture with medial clear space widening. PROCEDURE: Open reduction and internal fixation of the patient's left ankle-fibula. SURGEON: Riccardo Durham MD SLITTER AND CUTTER OPERATOR: EDDA Ramirez INTRAOPERATIVE COMPLICATIONS: None. SUMMARY OF PATHOLOGIC FINDINGS: The patient did have a displaced medial malleolar fracture, which reduced nicely to an anatomic position, thusly reducing the medial clear space. IMPLANTS USED: Heather VariAx internal fixation system. OPERATIVE SUMMARY IN DETAIL: After obtaining the appropriate preoperative orthopedic surgery consent as well as anesthetic consultation, evaluation, and clearance, the patient was brought to the operating room and placed on the operating table in the supine position. After adequate general laryngeal mask airway was administered, tourniquet was placed about the proximal aspect of the left lower extremity. The left lower extremity was then prepped and draped in routine sterile fashion. The leg was elevated, exsanguinated, and the tourniquet was inflated to 350 mmHg. An incision was made from the tip of the fibula up to the fibula across the fracture site. Care was taken to avoid any neurovascular structures, specifically the sural nerve. Dissection was then carried to periosteum and fracture hematoma was removed from the fracture. The fracture was then reduced in anatomic position. Two provisional K-wires were put into place. Under direct fluoroscopic visualization, the plate was placed. A combination of compression and locking screws were utilized to fix the plate. Final radiographs of AP, lateral, and oblique views were taken and submitted for radiologist's review. At this point, the wound was copiously irrigated and closed by Shahab Wiseman with #2 Vicryl and jeremy. Sterile dressings were applied. Tourniquet was deflated. Posterior L&U splint was applied. The patient was awakened and taken to the recovery room in stable condition. All final needle and sponge counts were correct. TRANSINT:[id number] Voice Confirmation ID: [id number] DOCUMENT ID: [id number] OPERATIVE REPORT [id number] RENAE WIGGINS MD, RICCARDO BRITO at 1426 CC: [id number] DICTATION DATE: 08/07/18 1630 PALS NURSE: 08/07/181915 DIS IN 08/09/18 [facility] [address] [place] [id number]
--- NOTE | 2018-08-11 14:34 | MORECARE ---
CASE MANAGEMENT DISCHARGE SUMMARY PATIENT: RENAE WIGGINS UNIT: [id number] ADM DATE: 08/07/18 AGE: 73 : 47 SEX: F ROOM/BED: D.2203 AUTHOR: RAJANI HUNTER PHYSICIAN: REFERRING PHYSICIAN: RICCARDO DURHAM MD DATE OF SERVICE: 08/11/18 Discharge Plan Patient Name: RENAE WIGGINS Facility: [facility]:[place] : 1945 Planned Disposition: Home Anticipated Discharge Date: Discharge Date: 08/09/2018 Expected LOS: 0 Initial Reviewer: [email or web address] Initial Review Date: 08/07/2018 Generated: 08/11/18 3:34 pm Comments DCP- Discharge Planning Updated by [email or web address]: Ekaterina Trujillo on 08/09/18 11:[address] Patient has been accepted to inpatient rehab and will be discharging there today at [facility] inpatient rehab. Patient is in agreement DCP- Discharge Planning Updated by [email or web address]: Ekaterina Trujillo on 08/07/18 1:[address] Patient Name: RENAE WIGGINS Admission Status: ER Accout number: [id number] Admission Date: 08-07-2018 : 1945 Admission Diagnosis: Attending: RICCARDO DURHAM Current LOS: 1 Anticipated DC Date: Planned Disposition: Home Primary Insurance: MEDICARE A & B Discharge Planning Comments: CM met with patient to assess discharge planning needs. Patient stated that she lives independently at home with her 18 year old niece. She does not use any home health nor does she have any DME. She is going to surgery today. She will need a walker at discharge. She stated that either her daughter or her son will be the one to drive her home at DC. She has 3 steps in her home. CM will continue to follow and assist with DC planning needs. Ash Collector: Ekaterina Trujillo DCPIA - Discharge Planning Initial Assessment Updated by [email or web address]: Ekaterina Trujillo on 08/07/18 1:57 pm * Is the patient Alert and Oriented? Yes * How many steps to enter\exit or inside your home? * PCP ANA * Pharmacy [facility] * Preadmission Environment Home with Family * ADLs Independent * Equipment None * List name and contact numbers for known caregivers / representatives who currently or will assist patient after discharge: TARAH ESQUIVEL (DAUGHTER) [phone] * Verbal permission to speak to the caregivers and representatives has been obtained from the patient. N/A * Community resources currently utilized None * Additional services required to return to the preadmission environment? Yes * Can the patient safely return to the preadmission environment? Yes * Has this patient been hospitalized within the prior 30 days at any hospital? No Last DP export: 08/09/18 11:37 a Patient Name: RENAE WIGGINS Page [id number] at 1434 All edits/amendments must be made on the electronic document DICTATION DATE: 08/11/181433 BEER COIL CLEANER: CHERRI 08/11/181433 RPT#: [id number] DC DATE:08/09/18 STATUS: DIS IN [facility] [address] [place] [address] END OF REPORT
== END 2018-08-09 17:09 | DRG 494 ==
LOC: D.ER 03:12 → D.MS 05:46
PROVIDERS: Emergency Medicine; ADMIT Orthopaedic Surgery
PROC: 0QSK04Z Reposition Left Fibula with Internal Fixation Device, Open Approach (ICD-10-PCS; principal; 2018-08-07 16:30)
DX: S82.62XA Displaced fracture of lateral malleolus of left fibula, initial encounter for closed fracture (principal); X58.XXXA Exposure to other specified factors, initial encounter; E11.9 Type 2 diabetes mellitus without complications; J45.909 Unspecified asthma, uncomplicated; E83.42 Hypomagnesemia

== ENCOUNTER 2018-08-09 16:06 | Inpatient (IN) | payer MEDICARE, OTHER ==
[~2018-08-09] VITALS: Ht 162.6 cm; Wt 76.7 kg
[~2018-08-09 16:06] MED LIST changes: +BREO ELLIPTA 11 EACH INH; +DORZOLAMIDE-TIMOLOL EACH EYE; +ELIQUIS2.5 MG PO; +NORCO-10 PO; +POTASSIUM CHLO10 ME1 PO; +ZYBAN150 MG
--- NOTE | 2018-08-09 19:08 | NUR ---
ADMIT TO REHAB FROM ACUTE UNIT. ALERT AND ORIENTED. L EYE BLIND, R EYE WITH VISUAL IMPAIRMENT.
[2018-08-10 00:06] VITALS: BP 111/37; BMI 29.0
--- NOTE | 2018-08-10 01:20 | NUR ---
PT ASLEEP NO NEEDS NOTED FLUIDS AND CALL LIGHT WITHIN REACH
[2018-08-10 06:20] LABS: HEMATOCRIT 40.8 % (36.0-48.0); HEMOGLOBIN 12.8 g/dL (12-16); MCH 29.4 pg (26.0-34.0); MCHC 31.4 g/dL (31.0-37.0); MCV 93.6 fL (80.0-100.0); MEAN PLATELET VOLUME 12.2 fL (7.4-10.4); RBC 4.36 10x6/uL (4.00-5.40); RDW 13.3 % (11.5-14.5); WBC 6.8 10x3/uL (4.8-10.8)
[2018-08-10 06:30] LABS: CALC OSMOLALITY 276 mosm/kg (275-300); CALCIUM 8.1 mg/dL (8.5-10.1); CARBON DIOXIDE 27.1 mmol/L (21.0-32.0); CHLORIDE - SERUM 101 mmol/L (98-107); CREATININE - SERUM 0.5 mg/dL (0.6-1.3); GLUCOSE 132 mg/dL (74-106); SODIUM 137 mmol/L (136-145); UREA NITROGEN 14 mg/dL (7-18); eGFR NON AFRICAN AMERICAN > 90 mL/min (90-120)
[2018-08-10 06:31] LABS: PLATELET COUNT 130 10x3/uL (130-400); POTASSIUM - SERUM 4.6 mmol/L (3.5-5.1)
[2018-08-10 07:54] LABS: LYMPHOCYTES 25 % (15-50); MONOCYTES 4 % (2-11); NEUTROPHILS 71 % (40-80); PLATELET ESTIMATE NORMAL
[2018-08-10 08:00] VITALS: BP 123/54
[2018-08-10 11:05] VITALS: Ht 162.6 cm; Wt 76.7 kg
--- NOTE | 2018-08-10 17:54 | NUR ---
PT RESTING IN BED WITH EYES OPEN CALL LIGHT IN REACH NO PROBLEMS WILL MONITER
--- NOTE | 2018-08-10 20:00 | NUR ---
PATIENT RECEIVED SITTING UP IN BED TALKING WITH HER BROTHER. PATIENT VITAL SIGNS & ASSESSMENT DONE. PATIENT BED LOW. ALARM ON. CALL LIGTH WITHIN REACH. WILL CONTINUE TO MONITOR.
[2018-08-10 20:03] VITALS: BP 110/51
--- NOTE | 2018-08-11 01:57 | NUR ---
PATIENT EYES CLOSED. RESPIRATIONS 18 & EVEN. PATIENT BED LOW. CALL LIGHT WITHIN REACH. WILL CONTINUE TO MOITOR.
--- NOTE | 2018-08-11 02:48 | NUR ---
PATIENT AWAKE USED CALL LIGHT FOR ASSIST. PATIENT TOILETED. BED LOW. ALARM ON. CALL LIGHT WITHIN REACH. WILL CONTINUE TO MONITOR.
[2018-08-11 05:43] LABS: BASOPHILS 0.3 % (0-2); HEMOGLOBIN 12.3 g/dL (12-16); IMMATURE GRANULOCYTES 0.2 % (0-5); LYMPHOCYTES 30.1 % (15-50); MCH 29.1 pg (26.0-34.0); MCHC 32.4 g/dL (31.0-37.0); MONOCYTES 13.8 % (2-11); NEUTROPHILS 51.6 % (40-80); RBC 4.22 10x6/uL (4.00-5.40); RDW 13.1 % (11.5-14.5); WBC 5.8 10x3/uL (4.8-10.8)
[2018-08-11 05:49] LABS: CALC OSMOLALITY 277 mosm/kg (275-300); CALCIUM 8.7 mg/dL (8.5-10.1); CARBON DIOXIDE 29.6 mmol/L (21.0-32.0); CHLORIDE - SERUM 100 mmol/L (98-107); GLUCOSE 121 mg/dL (74-106); PLATELET COUNT 215 10x3/uL (130-400); POTASSIUM - SERUM 4.2 mmol/L (3.5-5.1); SODIUM 138 mmol/L (136-145); UREA NITROGEN 14 mg/dL (7-18); eGFR NON AFRICAN AMERICAN 87 mL/min (90-120)
[2018-08-11 05:53] LABS: CREATININE - SERUM 0.7 mg/dL (0.6-1.3)
[2018-08-11 08:00] VITALS: BP 121/70
--- NOTE | 2018-08-11 08:00 | NUR ---
PATIENT SITTING UP IN WHEELCHAIR AT BEDSIDE. CALL LIGHT WITHIN REACH. VOICES NO NEEDS AT THIS TIME. WILL CONTINUE WITH PLAN OF CARE
--- NOTE | 2018-08-11 10:49 | NUR ---
PATIENT IN REHAB ROOM. WORKING WITH PHYSICAL THERAPIST. DENIES ANY PAIN DISCOMFORT AT THIS TIME. PRN PAIN MEDICATION GIVEN THIS AM
--- NOTE | 2018-08-11 16:41 | NUR ---
PATIENT RESTING IN BED AFTER THERAPY. VOICES NO NEEDS AT THIS TIME.
--- NOTE | 2018-08-11 19:18 | NUR ---
PATIENT IS SITTING UP IN HER WHEELCHAIR. CALL LIGHT IS IN REACH.
--- NOTE | 2018-08-11 20:00 | NUR ---
PT IS RESTING IN WC IN HER ROOM WITH EYES OPEN. ALERT AND ORIENTED X 3. VOICED COMPLAINT OF LEFT LEG PAIN LEVEL OF 7. MEDICATED PER MAR. NO FURTHER NEEDS VOICED. DAUGHTER IS AT BEDSIDE. SR'S ARE UP X 3 IN BED. CALL LIGHT AND BEDSIDE TABLE ARE WITHIN EASY REACH.
[2018-08-11 21:06] VITALS: BP 128/67
--- NOTE | 2018-08-11 23:28 | NUR ---
PT IS RESTING QUIETLY IN BED WITH EYES CLOSED. RESPS ARE EVEN AND UNLABORED. NO ACUTE DISTRESS NOTED.
--- NOTE | 2018-08-12 03:11 | NUR ---
RESTING IN BED WITH EYES CLOSED.
--- NOTE | 2018-08-12 06:17 | NUR ---
PT RESTING IN BED WITH EYES OPEN. NO NEEDS VOICED.
--- NOTE | 2018-08-12 07:35 | NUR ---
PT RESTING QUIETLY CALL LIGHT IN REACH. NO SIGNS OF DISTRESS OR PAIN. BED IN LOW POSITION. SIDE RAILS X2. WILL CONTINUE TO MONITOR.
[2018-08-12 08:00] VITALS: BP 134/65
--- NOTE | 2018-08-12 10:59 | NUR ---
PT WOULD LIKE TO TALK TO DR. BORJA DUE TO ZOLOFT DOSAGE. PT STATES SHE TAKES 50MG AT HOME BUT IS ON 100MG HERE. PT REFUSED MED THIS MORNING. NOTE LEFT FOR DR. BORJA. WILL CONTINUE TO MONITOR. PT STATES IT MADE HER FEEL OVER DOSED YESTERDAY AND DOWN IN THE DUMPS.
--- NOTE | 2018-08-12 14:16 | NUR ---
PT IN THERAPY DENIES NEEDS
--- NOTE | 2018-08-12 17:26 | NUR ---
ASSISTED PT TO AND FROM BATHROOM. PT BACK IN BED LYING DOWN. CALL LIGHT IN REACH. PT DENIES NEEDS OR PAIN. BED IN LOW POSITION. SIDE RAILS X2. WILL CONTINUE TO MONITOR.
--- NOTE | 2018-08-12 19:27 | NUR ---
PATIENT IS RESTING IN BED. SHE HAS VISITORS AT BEDSIDE. SHE DENIES ANY NEEDS AT THIS TIME. BED IS DOWN LOW WITH SIDE RAILS UP X2. CALL LIGHT IS IN REACH.
--- NOTE | 2018-08-12 21:31 | NUR ---
PT IS RESTING QUIETLY IN BED WITH EYES CLOSED. RESPS ARE EVEN AND UNLABORED. NO ACUTE DISTRESS NOTED.
--- NOTE | 2018-08-13 00:01 | NUR ---
PT RESTING QUIETLY IN BED WITH EYES CLOSED. NO ACUTE DISTRESS NOTED.
--- NOTE | 2018-08-13 03:26 | NUR ---
PT RESTING IN BED WITH EYES OPEN. NO NEEDS VOICED.
--- NOTE | 2018-08-13 07:45 | NUR ---
RECEIVED REPORT. SITTING UP ON SIDE OF BED ALERT AND ORIENTED X4. DENIES ANY NEEDS OR PAIN. RR EVEN AND UNLABORED. CALL LIGHT WITHIN REACH, FALL PRECAUTIONS IN PLACE
[2018-08-13 09:14] VITALS: BP 135/68
--- NOTE | 2018-08-13 13:09 | NUR ---
LYING IN BED EYES CLOSED RESTING. CALL LIGHT WITHIN REACH, FALL PRECAUTIONS IN PLACE
--- NOTE | 2018-08-13 15:11 | NUR ---
SITTING UP IN W/C ON PHONE. DENIES ANY NEEDS OR PAIN.
--- NOTE | 2018-08-13 17:53 | NUR ---
SITTING UP IN W/C EATING DINNER. FAMILY AT BEDSIDE. DENIES ANY NEEDS OR PAIN. CALL LIGHT WITHIN REACH, FALL PRECAUTIONS IN PLACE
[2018-08-13 17:57] VITALS: BP 134/60
--- NOTE | 2018-08-13 18:56 | NUR ---
PATIENT IS SITTING UP IN HER WHEELCHAIR AND SHE HAS VISITORS. SHE DENIES ANY NEEDS. CALL LIGHT IS IN REACH.
--- NOTE | 2018-08-13 21:27 | NUR ---
PT IS SITTING IN HER WC IN HER ROOM VISITING WITH HER . ALERT AND ORIENTED X 3. SHE DENIES ACUTE PAIN OR DISCOMFORT. PT IS LEGALLY BLIND IN BOTH EYES. NO NEEDS VOICED AT THIS TIME. SR'S ARE UP X 2 IN BED. CALL LIGHT AND BEDSIDE TABLE ARE WITHIN EASY REACH.
--- NOTE | 2018-08-14 00:01 | NUR ---
PT RESTING IN BED WITH EYES CLOSED. NO ACUTE DISTRESS NOTED.
--- NOTE | 2018-08-14 03:08 | NUR ---
PT RESTING QUIETLY IN BED WITH EYES CLOSED. NO ACUTE DISTRESS NOTED.
--- NOTE | 2018-08-14 05:57 | NUR ---
PT ASSISTED TO THE BATHROOM WITH MIN ASSIST. VOIDED WITHOUT DIFFICULTY. PT OPTED TO SIT UP IN WC, SAYING SHE WAS TIRED OF BEING IN THE BED.
[2018-08-14 06:48] LABS: BASOPHILS 0.5 % (0-2); EOSINOPHILS 3.9 % (0-7); HEMATOCRIT 41.4 % (36.0-48.0); HEMOGLOBIN 13.3 g/dL (12-16); IMMATURE GRANULOCYTES 0.3 % (0-5); LYMPHOCYTES 33.8 % (15-50); MCHC 32.1 g/dL (31.0-37.0); MCV 90.4 fL (80.0-100.0); MONOCYTES 8.5 % (2-11); RBC 4.58 10x6/uL (4.00-5.40); RDW 13.3 % (11.5-14.5); WBC 5.9 10x3/uL (4.8-10.8)
[2018-08-14 06:52] LABS: CALC OSMOLALITY 280 mosm/kg (275-300); CARBON DIOXIDE 27.6 mmol/L (21.0-32.0); CHLORIDE - SERUM 101 mmol/L (98-107); CREATININE - SERUM 0.7 mg/dL (0.6-1.3); GLUCOSE 110 mg/dL (74-106); PLATELET COUNT 277 10x3/uL (130-400); POTASSIUM - SERUM 3.8 mmol/L (3.5-5.1); SODIUM 139 mmol/L (136-145); UREA NITROGEN 18 mg/dL (7-18); eGFR NON AFRICAN AMERICAN 87 mL/min (90-120)
[2018-08-14 08:00] VITALS: BP 142/65
--- NOTE | 2018-08-14 15:56 | NUR ---
PATIENT ADMITTED TO REHAB FROM ACUTE FLOOR. PATIENT HAS NO DME OR HOME HEALTH AT THIS TIME. PATIENT PCP IS DR. PEREZ AND SHE WILL NEED AN APPOINTMENT WITH DR. DURHAM. WILL CONTINUE TO FOLLOW WITH PATIENT.
--- NOTE | 2018-08-14 21:27 | NUR ---
SIT UP IN BED AND WATCH TV, CALL LIGHT IN REACH.
[2018-08-14 23:09] VITALS: BP 117/73
--- NOTE | 2018-08-14 23:58 | NUR ---
REST QUIELTY IN BED, CALL LIGHT IN REACH.
--- NOTE | 2018-08-15 02:41 | NUR ---
RESTING IN BED. RESPIRATIONS UNLABORED. NO DISTRESS NOTED. CALL LIGHT IN REACH.
--- NOTE | 2018-08-15 04:22 | NUR ---
REST IN BED, CALL LIGHT IN REACH.
[2018-08-15 08:00] VITALS: BP 145/70
--- NOTE | 2018-08-15 08:00 | NUR ---
SHIFT ASSMT COMPLETED.
--- NOTE | 2018-08-15 12:00 | NUR ---
EATING LUNCH.CL IN REACH.
--- NOTE | 2018-08-15 13:14 | NUR ---
Nutrition Follow Up: Pt stated that her appetite is decreased. She said that if she really likes the meal she will have good po intake; if she does not like the meal she will only eat a small amount. RD encouraged pt to increase po intake as able and to make staff aware of any nutritional concerns, food preferences. Diet: ADA PO Intake: 75% meal avg BM: 08/14/18 Meds and labs reviewed Rec continue current diet. RD following.
--- NOTE | 2018-08-15 16:30 | NUR ---
RESTING QUIETLY.CL IN REACH.
--- NOTE | 2018-08-15 19:26 | NUR ---
GREETED PATIENT AND INTRODUCED MYSELF HER NURSE FOR THE EVENING. PATIENT IS SITTING ON SIDE OF BED WITH LEGS ELEVATED IN WHEELCHAIR. PATIENT ASK IF I WOULD ASSIST HER TO BATHROOM. ASSISTED PATIENT TO BATHROOM USING WHEELCHAIR AND BACK TO BED AND REPOSITIONED FOR COMFORT. CALL LIGHT IN REACH.
[2018-08-15 19:58] VITALS: BP 149/60
--- NOTE | 2018-08-16 01:32 | NUR ---
PATIENT ASLEEP WITH EYES CLOSED LAYING IN SUPINE POSITION. RESPIRATIONS EVEN. NO SIGNS OF DISTRESS. CALL LIGHT IN REACH.
[2018-08-16 08:00] VITALS: BP 131/63
--- NOTE | 2018-08-16 08:00 | NUR ---
SITTING UP IN WC FOR BRERAKFAST.CL IN REACH.DENIES NEEDS.
[2018-08-16 08:09] LABS: BASOPHILS 0.5 % (0-2); HEMATOCRIT 40.9 % (36.0-48.0); HEMOGLOBIN 13.3 g/dL (12-16); IMMATURE GRANULOCYTES 0.3 % (0-5); LYMPHOCYTES 28.5 % (15-50); MCH 29.2 pg (26.0-34.0); MCHC 32.5 g/dL (31.0-37.0); MCV 89.9 fL (80.0-100.0); MONOCYTES 7.3 % (2-11); NEUTROPHILS 60.4 % (40-80); PLATELET COUNT 297 10x3/uL (130-400); RBC 4.55 10x6/uL (4.00-5.40); RDW 13.4 % (11.5-14.5); WBC 6.3 10x3/uL (4.8-10.8)
[2018-08-16 08:10] LABS: ANION GAP 12.9 mmol/L (8-16); CARBON DIOXIDE 28.7 mmol/L (21.0-32.0); CREATININE - SERUM 0.9 mg/dL (0.6-1.3); POTASSIUM - SERUM 3.6 mmol/L (3.5-5.1)
--- NOTE | 2018-08-16 12:00 | NUR ---
IN WC EATING LUNCH.CL IN REACH.
--- NOTE | 2018-08-16 16:55 | NUR ---
CARE TEAM MEETING: PATIENT ATTENDED THE MEETING. HER QUESTIONS AND CONCERNS WERE ADDRESSED. TENATIVE DISCHARGE DATE IS 08/18/18. WILL CONTINUE TO FOLLOW WITH PATIENT.
--- NOTE | 2018-08-16 20:38 | NUR ---
PT WATCHING TV IN BED WATER NEEDED CALL LIGHT WITHIN REACH
--- NOTE | 2018-08-17 04:16 | NUR ---
PT AWAKE REQUESTED PRN NORCO PAIN 5 OF 10 GIVEN, FLUIDS AND CALL LIGHT WITHIN REACH
[2018-08-17 04:52] VITALS: BP 132/60
[2018-08-17 07:39] VITALS: BP 131/96
--- NOTE | 2018-08-17 08:07 | NUR ---
SITTING ON SIDE OF BED WAITING ON BREAKFAST. DENIES INCREASED PAIN OR NEEDS. CALL SLY MOON.
--- NOTE | 2018-08-17 11:09 | NUR ---
ORDER FAXED TO [facility] FOR A WHEELCAHIR TO BE DELIVERED TO PATIENT.
--- NOTE | 2018-08-17 12:19 | NUR ---
SITTING UP IN WC IN ROOM VISITING WITH VISITOR. DENIES NEEDS. CALL LIGHT IN REACH
--- NOTE | 2018-08-17 16:35 | NUR ---
LAYING IN BED QUIETLY LISTENING TO TV. DENIES NEEDS. CALL LIGHT IN REACH
--- NOTE | 2018-08-17 20:10 | NUR ---
PT UP IN WHEELCHAIR, ALWAYS PLEASANT, TALKATIVE, SMILING, FLUIDS AND CALL LIGHT WITHIN REACH
[2018-08-17 20:45] VITALS: BP 131/55
--- NOTE | 2018-08-17 23:00 | NUR ---
PT REQUESTED AND WAS GIVEN PRN NORCO FOR LLE TIB/FIB FX PAIN. FLUIDS AND CALL LIGHT WITHIN REACH
[2018-08-18 06:46] LABS: CALC OSMOLALITY 281 mosm/kg (275-300); CALCIUM 8.8 mg/dL (8.5-10.1); CARBON DIOXIDE 29.9 mmol/L (21.0-32.0); CHLORIDE - SERUM 104 mmol/L (98-107); CREATININE - SERUM 0.7 mg/dL (0.6-1.3); GLUCOSE 102 mg/dL (74-106); POTASSIUM - SERUM 3.8 mmol/L (3.5-5.1); SODIUM 141 mmol/L (136-145); UREA NITROGEN 15 mg/dL (7-18); eGFR NON AFRICAN AMERICAN 87 mL/min (90-120)
[2018-08-18 06:53] LABS: HEMATOCRIT 39.6 % (36.0-48.0); HEMOGLOBIN 12.9 g/dL (12-16); LYMPHOCYTES 30.9 % (15-50); MCH 29.1 pg (26.0-34.0); MCHC 32.6 g/dL (31.0-37.0); MCV 89.4 fL (80.0-100.0); MEAN PLATELET VOLUME 9.3 fL (7.4-10.4); NEUTROPHILS 56.9 % (40-80); PLATELET COUNT 261 10x3/uL (130-400); RBC 4.43 10x6/uL (4.00-5.40)
[2018-08-18 07:23] VITALS: BP 119/68
--- NOTE | 2018-08-18 08:00 | NUR ---
SITTING UP IN BED WAITING ON BREAKFAST. DENIES INCREASED OR NEW PAIN TO LLE. SHE STILL HAS SOFT CAST IN PLACE WITH JAYRO WRAP COVERING CAST AND LLE.
[2018-08-18] MEDS ORDERED: WELLBUTRIN SR150 MG PO (08:55)
[2018-08-18] MEDS ORDERED: NORCO-10 PO (08:55)
--- NOTE | 2018-08-18 08:56 | RHP ---
PATIENT: RENAE WIGGINS MEDICAL RECORD: [id number] ACCOUNT: [id number] LOCATION:[facility] D.[id number] : 47 ADMISSION DATE: 08/09/18 REHABILITATION HISTORY AND PHYSICAL EXAMINATION POST ADMISSION PHYSICIAN EXAMINATION DATE OF ADMISSION TO THE REHAB: 08/09/2018. ADMITTING DIAGNOSIS: Laterally displaced oblique fracture of the distal left fibula. HISTORY OF PRESENT ILLNESS: The patient is a 73-year-old female patient who presents to rehab with a working diagnosis of orthopedic condition with a displaced distal fibular fracture. The patient arrived to the Emergency Room on 08/07/2018 per EMS. She was down on her right knee and fell backwards catching the left ankle under her. She felt a pop and onset of pain and inability to bear weight. She was having pain on a 10 out of 10 severity. The pain was made worse with movement of her left lower extremity. Three view of the x-ray showed a fibular fracture with a slightly displaced and widening of the ankle mortise and avulsion fracture of the posterior distal tibia. Labs revealed a mag of 1.7, glucose 154. She was admitted per Dr. Santiago and was taken to surgery for open reduction internal fixation of the patient's left ankle fibula. She has got a past medical history of COPD, asthma, diabetes. She is blind in her left eye and has impaired vision in her right. She was independent with ADLs and mobility without aid. She has an 18-year-old niece that stays with her most of the time. Currently, she is mod to max assist for ADLs and mobility. She has continuous O2 at 2 liters. She is on nonweightbearing with her left leg and will be for the next 6 weeks. She is mod assist for sit to stand and bed to chair and has poor balance. She is unsteady with standing and has difficulty maintaining her nonweightbearing status at this time. Barriers to her discharge include a high fall risk, her nonweightbearing status, recent fall and she does have 3 steps to get into her house. COMORBIDITIES: Include COPD, diabetes, asthma, blindness, falls, left ankle injury, right knee pain, right leg swelling, hypomagnesemia, gastroesophageal reflux disease, and nonweightbearing balance. PAST MEDICAL HISTORY: Significant for blindness in her left eye, diabetes, asthma, acid reflux, depression. PAST SURGICAL HISTORY: Includes appendectomy, tonsillectomy, adenoidectomy, hysterectomy, neck surgery. ALLERGIES: SOMA AND DEMEROL. CURRENT MEDICATIONS: Include Zoloft 50 mg daily, potassium 10 mEq daily, Protonix 40 mg daily, metformin 500 mg b.i.d. with meals, Breo 1 puff daily. She is on Lipitor 40 mg daily. She is on Timoptic eyedrops b.i.d. She is on Trusopt 1 drop in each eye b.i.d., [place] 10/325 one tab q.4 hours p.r.n., Xalatan eyedrops 1 drop q.h.s., Eliquis 2.5 mg b.i.d., and Ventolin updrafts as needed. HABITS: No current alcohol or tobacco use. FAMILY HISTORY: Noncontributory. HISTORY AND PHYSICAL [id number] RENAE WIGGINS SOCIAL HISTORY: The patient hopes to return back home and get back to her prior level of functioning. Once again, her niece follows her at home as needed. REVIEW OF SYSTEMS: GENERAL: Does complain of some weakness. PSYCHIATRIC: Denies cold, cough, or congestion. CARDIOVASCULAR: Denies chest pain. PHYSICAL EXAMINATION: VITAL SIGNS: Stable, afebrile. GENERAL: Elderly female, in no acute distress, alert upon exam. HEENT: Normocephalic atraumatic. Mucosa moist. NECK: Supple. No lymphadenopathy. LUNGS: Clear at this time with no wheeze, rhonchi or rales. HEART: Regular rate and rhythm. No murmurs, rubs or gallops. ABDOMEN: Benign. EXTREMITIES: Does have dressings in place to her distal leg. NEUROLOGIC: She does have noted proximal muscle weakness. LABORATORY DATA: Her white count is 6.8, H&H of 12 and 40, and platelet count is 130. Sodium 137, potassium 4.6, BUN and creatinine of 14 and 0.5, and blood sugar is noted to be 132. ASSESSMENT: This is a 73-year-old female patient admitted to the rehab with a working diagnosis of distal fibular fracture with avulsion fracture of the tibia. Patient has potential to make improvement. We instituted the following multidisciplinary therapies include, but not limited to physical, occupational, respiratory, speech, nutritional services, prosthetics and orthotics. Given her complex medical condition and risk for more complications, rehabilitation services cannot be provided at a low level of care such a correction facility. PLAN: 1. Admit to [facility] rehab for intensive inpatient therapy to include the following disciplines: A. Physical therapy to improve gait, all transfer skills and bed mobility to a modified independent level. B. Occupational therapy improve activities of daily living to a modified independent level. C. Case management to assist with discharge planning and placement options. D. Nutrition to assist with nutritional needs. E. Rehabilitation nursing to assist in monitoring the patient's underlying medical conditions and to assist with any type of bowel or bladder management. 2. The patient's current medication and medical care will be continued. 3. She will remain on Eliquis for DVT prophylaxis. 4. Will continue on Protonix for any type of gastritis. 5. I am going to follow up in the a.m. TRANSINT:[id number] Voice Confirmation ID: [id number] DOCUMENT ID: [id number] LIV notes whether there has been none or any medical/functional change since admission: - No change since prescreen. HISTORY AND PHYSICAL [id number] RENAE WIGGINS attests patient continues to be appropriate for IRF: - Continues to be appropriate. KAHLIL BORJA MD at 0856 CC: [id number] DICTATION DATE: 08/10/18 0839 [employer] FI[employer] WORKER: 08/10/18 0909 ADM IN [place] [id number] [place] [address]
--- NOTE | 2018-08-18 09:02 | NUR ---
PATIENT DISCHARGING HOME TODAY WITH FAMILY. PATIENT DECLINES HOME HEALTH AT THIS TIME. [facility] WILL DELIVER A WHEELCHAIR TO PATIENT. DR. PEREZ OFFICE WILL CALL PATIENT WITH AN APPOINTMENT. DR. DURHAM 08/30/18 @ 11:00. PATIENT CHOICE FORM AND [facility] FORMS SIGNED, COPIES GIVEN TO PATIENT AND FILED IN CHART. DISCHARGE INSTRUCTIONS WITH [facility] DATA FAXED TO PCP.
--- NOTE | 2018-08-18 13:41 | NUR ---
DC HOME WITH ALL PERSONAL BELONGINGS. DTR WITH PT TO TAKE HER HOME. REVIEWED MEDS. FOLLOW UP APPTS AND DC PLAN WITH PT AND DTR. GAVE HER HARD SCRIPT FOR HER PAIN MEDS. OTHER MEDS CALLED INTO [facility] ON [address]. PT HAD NEW WC DELIVERED TO ROOM AND DTR WAS ABLE TO LOAD IN VAN BY HERSELF.
== END 2018-08-18 13:15 | disposition home or self-care (01) | DRG 561 ==
LOC: D.REHAB 16:06
PROVIDERS: ADMIT Emergency Medicine
DX: S82.832D Other fracture of upper and lower end of left fibula, subsequent encounter for closed fracture with routine healing (principal); J44.9 Chronic obstructive pulmonary disease, unspecified; E11.9 Type 2 diabetes mellitus without complications; J45.909 Unspecified asthma, uncomplicated; K21.9 Gastro-esophageal reflux disease without esophagitis; E83.42 Hypomagnesemia; M79.89 Other specified soft tissue disorders; W19.XXXD Unspecified fall, subsequent encounter; M25.561 Pain in right knee; H54.40 Blindness, one eye, unspecified eye

== ENCOUNTER → 2019-08-27 15:31 | Outpatient (CLI) | payer MEDICARE, OTHER ==
[2018-08-10 11:05] VITALS: BMI 29.0
[~2019-08-27 15:31] MED LIST changes: +WELLBUTRIN SR150 MG PO
== END | disposition home or self-care (01) ==
LOC: D.LAB 15:15 → D.MRI 15:30 → D.LAB 15:31
PROVIDERS: ATTEND Family Medicine
DX: R41.82 Altered mental status, unspecified (principal)